=== PATIENT | female | born 2000 | race Caucasian/White ===

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

== ENCOUNTER 2023-03-07 16:40 | Emergency (ER) | payer MEDICAID, OTHER ==
[~2023-03-07] VITALS: Ht 149.9 cm; Wt 54.5 kg
[2023-03-07 16:50] VITALS: BP 125/59; PULSE 92; RESP 18; TEMP 98.5
[2023-03-07] MEDS ORDERED: MEDR150V13 IM (16:52)
[2023-03-07] MEDS ORDERED: IBUPROFEN 600 MG TABLET PO ONE (19:00)
[2023-03-07] MEDS ORDERED: IBUP-1554 PO (20:19)
[2023-03-07] MEDS ORDERED: ACET-2080 PO (20:19)
[2023-03-07] MEDS ORDERED: ACETAMINOPHEN/CODEINE 300-30 MG TABLET PO ONE (20:30)
== END 2023-03-07 20:45 | disposition home or self-care (01) ==
LOC: EMS 16:41
DX: S93.401A Sprain of unspecified ligament of right ankle, initial encounter (principal); S93.601A Unspecified sprain of right foot, initial encounter; F12.90 Cannabis use, unspecified, uncomplicated; X50.1XXA Overexertion from prolonged static or awkward postures, initial encounter; Y93.89 Activity, other specified; Y92.89 Other specified places as the place of occurrence of the external cause; Y99.8 Other external cause status
CPT/HCPCS: 99284; 73610-TC; 73630-TC; Z7502; Z7610